=== PATIENT | male | born 1955 | race Caucasian/White ===

== ENCOUNTER 2023-08-17 09:03 | Day surgery (SDC) | payer OTHER ==
[~2023-08-17] VITALS: Ht 193 cm; Wt 94.4 kg
[~2023-08-17 09:03] MED LIST: Percocet 5-3251 EACH PO
--- NOTE | 2023-08-17 09:41 | NUR ---
08/17/23 0941 Jeannine Horowitz 1 DROP OF TETRACAINE ADMINISTERED TO THE R EYE AT 0935, PLEDGET PLACED IN R EYE AT 0937 BY [email or web address], PT STEFANO WELL
[2023-08-17 10:46] VITALS: BP 138/100
== END 2023-08-17 11:09 | disposition home or self-care (01) ==
LOC: ORSCSDS 09:03
PROVIDERS: Ophthalmology
PROC: 08RJ3JZ Replacement of Right Lens with Synthetic Substitute, Percutaneous Approach (ICD-10-PCS; principal; 2023-08-17 10:30)
DX: H25.13 Age-related nuclear cataract, bilateral (principal); F17.210 Nicotine dependence, cigarettes, uncomplicated
CPT/HCPCS: J2250; J3010; J3301; J7040; V2632

== ENCOUNTER 2023-08-24 09:10 | Day surgery (SDC) | payer OTHER ==
[~2023-08-24] VITALS: Ht 188 cm; Wt 94.2 kg
[2023-08-24 10:33] VITALS: BP 124/81
--- NOTE | 2023-08-24 11:17 | NUR ---
08/24/23 1117 Joao Lopez IV REMOVED INTACT. SITE WNL. SECOND VITAL SET DID NOT SAVE. ALL VITALS WITHIN 20% BASELINE.
== END 2023-08-24 10:52 | disposition home or self-care (01) ==
LOC: ORSCSDS 09:10
PROVIDERS: Ophthalmology
PROC: 08RK3JZ Replacement of Left Lens with Synthetic Substitute, Percutaneous Approach (ICD-10-PCS; principal; 2023-08-24 10:30)
DX: H25.12 Age-related nuclear cataract, left eye (principal); Z96.1 Presence of intraocular lens; F17.210 Nicotine dependence, cigarettes, uncomplicated; Z79.899 Other long term (current) drug therapy
CPT/HCPCS: J2250; J3010; J3301; J7040; V2632

== ENCOUNTER 2025-04-03 08:41 | Day surgery (SDC) | payer OTHER ==
[~2025-04-03] VITALS: Ht 188 cm; Wt 99.2 kg
[2025-04-03] MEDS ORDERED: CeFAZolin Sodium 2,000 MG VIAL ONE (08:56)
[2025-04-03] MEDS ORDERED: Lactated Ringer's 1,000 ML IV ONE (09:16)
[2025-04-03] MEDS ORDERED: Acetaminophen 500 MG Tab ONE (09:18)
--- NOTE | 2025-04-03 09:20 | NUR ---
04/03/25 0920 REBECCA THAKUR AT BEDSIDE AT 0910
[2025-04-03] MEDS ORDERED: propofoL 20 ML IV ONE (09:24)
[2025-04-03] MEDS ORDERED: FentaNYL Citrate 50 MCG/ML 2 ML Injection ONE (09:24)
[2025-04-03] MEDS ORDERED: Rocuronium Bromide 10 MG/ML 5ML Injection IV ONE (09:25)
[2025-04-03] MEDS ORDERED: Bupivacaine 0.5% HCl 5 MG/ML 30MLVIAL INJ ONE (09:58)
[2025-04-03] MEDS ORDERED: Labetalol HCL 5 MG/ML 4ML Injection (Single Dose) ONE (09:59)
[2025-04-03] MEDS ORDERED: Sugammadex Sodium 200 MG/2ML SDV (100 MG/ML) ONE (10:10)
--- NOTE | 2025-04-03 11:18 | NUR ---
04/03/25 1118 Nely Ramirez REPORT RECEIVED FROM KOURTNEY AND RN. PT DROWSY, FOLLOWS COMMANDS AND ANSWERS QUESTIONS. PT ON RA, DEEP BREATHING. O2 SAT 92%. PT DENIES NAUSEA OR PAIN AT THIS TIME.
[2025-04-03 11:25] VITALS: BP 104/78
--- NOTE | 2025-04-03 11:35 | NUR ---
04/03/25 1136 Nely Ramirez BROUGHT TO BEDSIDE
== END 2025-04-03 12:16 | disposition home or self-care (01) ==
LOC: ORSCSDS 08:41
PROVIDERS: Surgery
PROC: 0JBD0ZX Excision of Right Upper Arm Subcutaneous Tissue and Fascia, Open Approach, Diagnostic (ICD-10-PCS; principal; 2025-04-03 10:00)
DX: D21.11 Benign neoplasm of connective and other soft tissue of right upper limb, including shoulder (principal); G47.33 Obstructive sleep apnea (adult) (pediatric); G62.9 Polyneuropathy, unspecified
CPT/HCPCS: 88304; A9270; J0690; J2704; J3010